=== PATIENT | male | born 1970 | race Two or more races ===

== ENCOUNTER 2023-07-19 23:13 | Emergency (ER) | payer MEDICAID, OTHER ==
[~2023-07-19] VITALS: Ht 175.3 cm; Wt 74.8 kg
[2023-07-20] MEDS ORDERED: ACETAMINOPHEN ES 500 MG TABLET ONE (00:36)
[2023-07-20] MEDS: ACETAMINOPHEN ES 500 MG TABLET PO ONE (00:38)
[2023-07-20 03:24] VITALS: BP 128/71; TEMP 98.5; O2SAT 100
== END 2023-07-20 03:25 | disposition home or self-care (01) ==
LOC: ER 23:16
DX: M25.511 Pain in right shoulder (principal); Z59.00 Homelessness unspecified
CPT/HCPCS: 71045-TC